=== PATIENT | female | born 1970 | race Caucasian/White ===

== ENCOUNTER 2019-12-30 20:31 | Emergency (ER) | payer BC ==
--- NOTE | 2019-12-30 20:52 | ER Document Report ---
ED Medical Screen (RME) - General Stated Complaint: FACE INJURY Primary Care Provider: JATIN ORTEGA MD [Primary Care Provider] - Follow up as needed Notes: Patient is a 49-year-old white female with no significant past medical history presents to the emergency department with a chief complaint of nasal swelling and right eye swelling after accidentally being struck in the face with a Frisbee during a game with her . She denies loss of consciousness. S tates both nostrils are stuffy and she is concerned she broke her nose. Denies any visual disturbances or pressure in the eyes. Denies dizziness, nausea, vomiting or gait disturbance. I have treated and performed a rapid initial assessment of this patient. A comprehensive ED assessment and evaluation of the patient, analysis of test results and completion of medical decision making process will be conducted by additional ED providers. PHYSICAL EXAMINATION: GENERAL: Well-appearing, well-nourished and in no acute distress. A&Ox4. Answers questions appropriately. Physical Exam - Vital signs Vitals: Temp Pulse Resp BP Pulse Ox 98.4 F 79 16 169/103 H 97 12/30/19 20:37 12/30/19 20:37 12/30/19 20:37 12/30/19 20:37 12/30/19 20:37 Course - Vital Signs Vital signs: Temp Pulse Resp BP Pulse Ox 98.4 F 79 16 169/103 H 97 12/30/19 20:37 12/30/19 20:37 12/30/19 20:37 12/30/19 20:37 12/30/19 20:37 Doctor's Discharge - Discharge Referrals: JATIN ORTEGA MD [Primary Care Provider] - Follow up as needed
--- NOTE | 2019-12-30 21:24 | RADIOLOGY REPORT (SQ) ---
CT MAXILLOFACIAL WITHOUT IV CONTRAST EXAM DATE: 12/30/2019 8:50 PM CDT HISTORY: Right facial trauma. COMPARISON: None. TECHNIQUE: CT scan of the facial bones was performed without IV contrast. This exam was performed according to our departmental dose-optimization program, which includes automated exposure control, adjustment of the mA and/or kV according to patient size and/or use of iterative reconstruction technique. FINDINGS: Acute nondisplaced bilateral nasal bone fractures with overlying soft tissue swelling. No air-fluid levels are seen in the paranasal sinuses. The mastoid air cells are clear. No retrobulbar mass or hematoma is identified. IMPRESSION: Acute nondisplaced bilateral nasal bone fractures with overlying soft tissue swelling.
[2019-12-30] MEDS ORDERED: HYDROCODONE/ACETAMINOPHEN 5-325 MG (6 TAB/ER DISP) PO PRN (22:26)
[2019-12-30 22:44] VITALS: BP 180/94
== END 2019-12-30 22:44 | disposition home or self-care (01) ==
LOC: ER 20:31
DX: S09.93XA Unspecified injury of face, initial encounter (principal); W21.89XA Striking against or struck by other sports equipment, initial encounter; Y93.74 Activity, frisbee
CPT/HCPCS: 70486; 99283

== ENCOUNTER → 2020-04-03 | Outpatient (CLI) | payer BC ==
[2020-04-03 07:43] LABS: HEMATOCRIT 42.9 % (36.0-47.0); HEMOGLOBIN 14.6 g/dL (12.0-15.5); MEAN CORPUSCULAR HEMOGLOBIN 30.6 pg (27.0-33.4); MEAN CORPUSCULAR VOLUME 90 fl (80-97); PLATELET COUNT 315 10^3/uL (150-450); RED BLOOD COUNT 4.77 10^6/uL (3.72-5.28); WHITE BLOOD COUNT 5.3 10^3/uL (4.0-10.5)
[2020-04-03 07:52] LABS: ALBUMIN 4.7 g/dL (3.5-5.0); ALKALINE PHOSPHATASE 77 U/L (38-126); ANION GAP 8 (5-19); ASPARTATE AMINO TRANSFERASE 26 U/L (14-36); BILIRUBIN,TOTAL 0.4 mg/dL (0.2-1.3); BLOOD UREA NITROGEN 16 mg/dL (7-20); CALCIUM 9.7 mg/dL (8.4-10.2); CARBON DIOXIDE 27 mmol/L (22-30); CHLORIDE 104 mmol/L (98-107); CHOLESTEROL 278.23 mg/dL (0-200); GLUCOSE 114 mg/dL (75-110); POTASSIUM 4.8 mmol/L (3.6-5.0); TOTAL PROTEIN 7.9 g/dL (6.3-8.2); TRIGLYCERIDES 179 mg/dL (<150)
[2020-04-03 08:03] LABS: DIRECT LDL 188 mg/dL (<100)
[2020-04-03 08:08] LABS: VLDL CHOLESTEROL 35.8 mg/dL (10-31)
[2020-04-03 09:43] LABS: APPEARANCE,URINE CLEAR; BILIRUBIN,URINE NEGATIVE (NEGATIVE); COLOR,URINE YELLOW; GLUCOSE, URINE NEGATIVE (NEGATIVE); KETONES,URINE NEGATIVE (NEGATIVE); LEUKOCYTE ESTERASE,URINE NEGATIVE (NEGATIVE); NITRITE,URINE NEGATIVE (NEGATIVE); PROTEIN,URINE NEGATIVE (NEGATIVE); URINE SPECIFIC GRAVITY 1.023; UROBILINOGEN,URINE NEGATIVE mg/dL (<2.0)
== END ==
LOC: OD 07:08
PROVIDERS: ATTEND Family Medicine
DX: R03.0 Elevated blood-pressure reading, without diagnosis of hypertension (principal); Z13.1 Encounter for screening for diabetes mellitus; Z13.220 Encounter for screening for lipoid disorders
CPT/HCPCS: 36415; 80053; 80061; 81001; 84443; 85027

== ENCOUNTER → 2020-10-08 | Outpatient (CLI) | payer BC ==
[~2020-10-08] MED LIST: COVID-19 VACCINE (PFIZER)/PF 30 MCG/0.3 ML VIAL IM ONE; EPINEPHRINE INJ/PF 1 MG/1 ML AMPULE IM PRN
== END ==
LOC: EMPHEALTH 07:54
PROVIDERS: ATTEND Internal Medicine
DX: Z23 Encounter for immunization (principal)
CPT/HCPCS: 91300

== ENCOUNTER → 2020-10-29 | Outpatient (CLI) | payer BC | LOC: EMPHEALTH 07:50 | PROVIDERS: ATTEND Internal Medicine | DX: Z23 Encounter for immunization (principal) | CPT/HCPCS: 91300 ==